=== PATIENT | female | born 1970 | race Caucasian/White ===

== ENCOUNTER 2017-01-18 13:35 | Observation (INO) | payer MEDICAID ==
[2017-01-18 13:35] VITALS: BMI 25.6
[2017-01-18 13:52] VITALS: TEMP 98
--- NOTE | 2017-01-18 14:02 | ED PDOC ---
Arrival/HPI - General Chief Complaint: Palpitations Time Seen by Provider: 01/18/17 13:41 Historian: Patient - History of Present Illness Narrative History of Present Illness (Text): 01/18/17 14:00 46 year old female whose past medical history includes hypothyroidism comes to the ER complaining of feeling intermittent shortness of breath associated with palpitations and dizziness since yesterday. Patient states 2 days ago she had a colonoscopy to evaluate for hemorrhoids and reports some abdominal discomfort yesterday which she says has resolved. Patient states she continues to have shortness of breath and palpitations. Currently denies abdominal pain. No nausea, vomiting, or diarrhea. No cough or fever. No other complaints. Time/Duration: 24 hours Symptom Onset: Gradual Symptom Course: Unchanged Modifying Factors (Text): None Past Medical History - Provider Review Nursing Documentation Reviewed: Yes - Infectious Disease Hx of Infectious Diseases: None - Reproductive Menopause: No - Endocrine/Metabolic Hx Hypothyroidism: Yes - Gastrointestinal Other/Comment: colonoscopy - Psychiatric Hx Substance Use: No - Anesthesia Hx Anesthesia Reactions: No - Suicidal Assessment Feels Threatened In Home Enviroment: No Family/Social History - Physician Review Nursing Documentation Reviewed: Yes Family/Social History: Unknown Family HX Smoking Status: Unknown If Ever Smoked Hx Alcohol Use: No Hx Substance Use: No Allergies/Home Meds Allergies/Adverse Reactions: Allergies No Known Allergies Allergy (Verified 01/18/17 13:52) Home Medications: Home Meds Medication Instructions Recorded Confirmed Cholecalciferol [Vitamin D] 1,000 iu PO DAILY 01/18/17 01/18/17 Levothyroxine [Levoxyl] 0.137 mg PO DAILY 01/18/17 01/18/17 Review of Systems - Physician Review All systems were reviewed & negative as marked: Yes - Review of Systems Constitutional: absent: Fevers Eyes: absent: Vision Changes ENT: absent: Hearing Changes Respiratory: SOB (intermittent). absent: Cough Cardiovascular: Palpitations Gastrointestinal: Abdominal Pain (resolved). absent: Diarrhea, Nausea, Vomiting Musculoskeletal: absent: Back Pain Skin: absent: Rash Neurological: Dizziness Physical Exam Vital Signs Reviewed: Yes Vital Signs Temp Pulse Resp BP Pulse Ox 01/18/17 15:35 77 18 95/60 L 100 01/18/17 13:45 98 F 82 16 104/71 100 Temperature: Afebrile Blood Pressure: Normal Pulse: Regular Respiratory Rate: Normal Appearance: Positive for: Well-Appearing, Non-Toxic, Comfortable Pain Distress: None Mental Status: Positive for: Alert and Oriented X 3 - Systems Exam Head: Present: Atraumatic, Normocephalic Pupils: Present: PERRL Conjunctiva: Present: Normal Mouth: Present: Moist Mucous Membranes Pharnyx: Present: Normal. No: ERYTHEMA, EXUDATE Neck: Present: Normal Range of Motion Respiratory/Chest: Present: Clear to Auscultation, Good Air Exchange. No: Respiratory Distress, Accessory Muscle Use Cardiovascular: Present: Regular Rate and Rhythm, Normal S1, S2. No: Murmurs Abdomen: Present: Tenderness (Epigastric), Normal Bowel Sounds. No: Distention , Peritoneal Signs Back: Present: Normal Inspection Upper Extremity: Present: Normal Inspection. No: Cyanosis, Edema Lower Extremity: Present: Normal Inspection. No: Edema Neurological: Present: GCS=15, CN II-XII Intact, Speech Normal Skin: Present: Warm, Dry, Normal Color. No: Rashes Psychiatric: Present: Alert, Oriented x 3, Normal Concentration, Anxious Medical Decision Making ED Course and Treatment: Impression: 46 year old female whose past medical history includes hypothyroidism comes to the ER complaining of feeling intermittent shortness of breath associated with palpitations and dizziness since yesterday. Differential Diagnosis include but are not limited to: Anxiety vs pulmonary embolism vs arrhythmia vs GERD Plan: -- Chest X-ray -- Pepcid -- Labs -- Reassess and disposition Prior Visits: Notes and results from previous visits were reviewed. Patient last seen in ED on 09/17/14 for back pain and discharged home. Progress Notes: 01/18/17 17:30 Labs are unremarkable with negative CE, normal ekg and normal d-dimer - will d/ c. - EKG Interpretation EKG Interpretation (Text): EKG shows NSR at 85 BPM, normal intervals, normal axis, no ST/T wave changes. Interpreted by me. Interpreted by ED Physician: Yes Type: 12 lead EKG - Medication Orders Current Medication Orders: Discontinued Medications Alprazolam (Xanax) 0.125 mg PO STAT STA PRN Reason: Protocol Stop: 01/18/17 15:55 Last Admin: 01/18/17 16:01 Dose: 0.125 mg Famotidine (Pepcid) 20 mg IVP STAT STA Stop: 01/18/17 14:01 Last Admin: 01/18/17 14:15 Dose: 20 mg Pantoprazole Sodium (Protonix Inj) 40 mg IVP ONCE STA Stop: 01/18/17 14:50 Last Admin: 01/18/17 14:58 Dose: 40 mg Potassium Chloride (K-Dur 20 Meq Er Tab) 40 meq PO STAT STA Stop: 01/18/17 14:47 Last Admin: 01/18/17 14:58 Dose: 40 meq ED OBSERVATION Discharge: Yes Date of observation admission: 01/18/17 Time of observation admission: 13:41 - Observation admission statement Patient is being placed in observation because:: palpitations - Goals of Observation Goals of observation are:: monitor patient's response to to treatments in the ER - Progress Note Progress Note: 01/18/17 14:45 Patient reports feeling some improvement but says they are still present. Will also give Protonix. 01/18/17 15:50 Patient continues to report improvement. She reports about 50% improvement but still feels symptoms to some degree. Will give Xanax. Labs reviewed. 01/18/17 17:26 Patient is feeling much better with full resolution of palpitations and sob - will d/c to f/u pmd. - Scribe Statement The provider has reviewed the documentation as recorded by the Qiana Clinton Provider Scribe Attestation: All medical record entries made by the Scribe were at my direction and personally dictated by me. I have reviewed the chart and agree that the record accurately reflects my personal performance of the history, physical exam, medical decision making, and the department course for this patient. I have also personally directed, reviewed, and agree with the discharge instructions and disposition. Disposition/Present on Arrival - Present on Arrival Any Indicators Present on Arrival: No History of DVT/PE: No History of Uncontrolled Diabetes: No Urinary Catheter: No History of Decub. Ulcer: No History Surgical Site Infection Following: None - Disposition Have Diagnosis and Disposition been Completed?: Yes Diagnosis: Palpitations Disposition: HOME/ ROUTINE Disposition Time: 17:28 Patient Plan: Discharge Patient Problems: Current Active Problems Problem Status Onset Palpitations Acute Condition: GOOD
[2017-01-18 14:23] LABS: BASO # 0.02 K/mm3 (0.0-2.0); BASO % 0.3 % (0.0-3.0); EOS # 0.2 (0.0-0.7); GRAN # 2.46 (1.4-6.5); GRAN % 37.5 % (50.0-68.0); HEMOGLOBIN 11.2 gm/dL (12.0-16.0); LYMPH # 3.4 (1.2-3.4); LYMPH % 51.1 % (22.0-35.0); MEAN CELL VOLUME 76.8 fL (80.0-105.0); MEAN CORPUSCULAR HEMOGLOBIN 25.7 pg (25.0-35.0); MEAN CORPUSCULAR HGB CONC 33.5 g/dl (31.0-37.0); MEAN PLATELET VOLUME 9.4 fl (7.0-11.0); MONO # 0.5 (0.1-0.6); MONO % 8.1 % (1.0-6.0); PLATELET COUNT 315 10^3/uL (120.0-450.0); RBC 4.35 10^6/uL (3.5-6.1); RED CELL DISTRIBUTION WIDTH 12.9 % (11.5-14.5); WHITE BLOOD COUNT 6.6 10^3/ul (4.5-11.0)
[2017-01-18 14:24] LABS: URINE APPEARANCE CLEAR (CLEAR); URINE BILIRUBIN NEGATIVE (NEGATIVE); URINE BLOOD TRACE-LYSED (NEGATIVE); URINE COLOR YELLOW (YELLOW); URINE GLUCOSE (UA) NEGATIVE (NEGATIVE); URINE LEUKOCYTE ESTERASE NEGATIVE Leu/uL (NEGATIVE); URINE NITRATE NEGATIVE (NEGATIVE); URINE PROTEIN NEGATIVE mg/dL (<30 mg/dL); URINE UROBILINOGEN 0.2 E.U./dL (<1 E.U./dL)
[2017-01-18 14:32] LABS: ALB/GLOB RATIO 1.2 (1.1-1.8); ALBUMIN 4.4 g/dL (3.0-4.8); ALT/SGPT 23 U/L (7-56); AST/SGOT 20 U/L (15-39); BLOOD UREA NITROGEN 14 mg/dL (7-21); CALCIUM 9.8 mg/dL (8.4-10.5); GFR AFRICAN-AMERICAN > 60; GFR NON-AFRICAN AMERICAN > 60; LIPASE 78 U/L (23-300); MAGNESIUM 1.8 mg/dL (1.7-2.2)
--- NOTE | 2017-01-18 14:35 | RAD ---
HISTORY: sob COMPARISON: 09/17/2014 FINDINGS: LUNGS: No active pulmonary disease. PLEURA: No significant pleural effusion identified, no pneumothorax apparent. CARDIOVASCULAR: Normal. OSSEOUS STRUCTURES: No significant abnormalities. VISUALIZED UPPER ABDOMEN: Normal. OTHER FINDINGS: None. IMPRESSION: No active disease.
[2017-01-18 14:44] LABS: TROPONIN I < 0.01 ng/mL
[2017-01-18 14:46] LABS: INR 1.06 (0.93-1.08); PARTIAL THROMBOPLASTIN TIME 26.7 Seconds (23.7-30.8); PROTHROMBIN TIME 11.4 Seconds (9.9-11.8)
[2017-01-18] MEDS ORDERED: Potassium Chloride 20 mEq ER Tab PO STA (14:46)
[2017-01-18 14:50] LABS: D DIMER 0.46 mg/L FEU (0-0.50)
[2017-01-18 14:56] LABS: URINE BACTERIA TRACE (NEG); URINE EPITHELIAL CELLS 0 - 2 /hpf (0-5); URINE RBC 0 - 2 /hpf (0-2); URINE WBC 0 - 2 /hpf (0-6)
[2017-01-18 16:04] VITALS: RESP 18
[2017-01-18 17:37] VITALS: BP 98/56; PULSE 82; O2SAT 99
--- NOTE | 2017-01-19 09:11 | CARD ---
APPROVED REPORT EKG Measurement Heart [id number] <Conclusion> Normal sinus rhythm RVCD Normal ECG No change
== END 2017-01-18 17:31 | disposition home or self-care (01) ==
LOC: ED 13:35 → EROBSV 13:41
PROVIDERS: ADMIT Emergency Medicine; ATTEND Emergency Medicine
DX: R00.2 Palpitations (principal); E03.9 Hypothyroidism, unspecified
CPT/HCPCS: 71010; 80053; 81001; 82550; 83615; 83690; 83735; 83880; 84484; 85025; 85378; 85610; 85730; 93005; 96374; 96375; 99284; C9113; G0378